=== PATIENT | female | born 1990 | race Two or more races ===

== ENCOUNTER 2019-09-02 06:30 | Emergency (ER) | payer SELFPAY ==
[~2019-09-02] VITALS: Ht 149.9 cm; Wt 73.4 kg
[2019-09-02] MEDS ORDERED: MORPHINE SULFATE 4 MG/ML, 1ML IVPush PRN (07:00)
[2019-09-02] MEDS ORDERED: ONDANSETRON 2MG/ML, 2ML IVPush ONE (07:00)
[2019-09-02] MEDS ORDERED: SODIUM CHLORIDE FLUSH 10ML SYR IVF ONE (07:00)
--- NOTE | 2019-09-02 07:00 | NUR ---
REPORT TO HANNAH LEONARD
[2019-09-02] MEDS ORDERED: ONDANSETRON 2MG/ML, 2ML ONE (07:09)
[2019-09-02] MEDS ORDERED: MORPHINE SULFATE 4 MG/ML, 1ML ONE (07:09)
[2019-09-02 07:10] LABS: BASOPHILS # (AUTO) 0.01 x10^3/uL (0-0.1); BASOPHILS % (AUTO) 0 % (0-1); EOSINOPHILS # (AUTO) 0.09 x10^3/uL (0-0.4); EOSINOPHILS % (AUTO) 1 % (1-7); LYMPHOCYTES # (AUTO) 2.18 x10^3/uL (1-3.4); LYMPHOCYTES % (AUTO) 23 % (22-44); MD NO; MEAN CORPUSCULAR HEMOGLOBIN 30.4 pg (27.0-34.8); MEAN PLATELET VOLUME 9.1 fL (7.4-10.4); MONOCYTES # (AUTO) 0.64 x10^3/uL (0.2-0.8); MONOCYTES % (AUTO) 7 % (2-9); NEUTROPHILS # (AUTO) 6.59 x10^3/uL (1.8-6.8); NEUTROPHILS % (AUTO) 69 % (42-75); PLATELET COUNT 185 x10^3/uL (130-400); RED BLOOD COUNT 4.46 x10^6/uL (3.82-5.3); RED CELL DISTRIBUTION WIDTH 13.3 % (9.6-15.2)
[2019-09-02 07:16] LABS: ALANINE AMINOTRANSFERASE 100 U/L (12-78); ALBUMIN 3.5 g/dL (3.4-5.0); ANION GAP 5 mmol/L (5-15); CALCIUM 8.4 mg/dL (8.5-10.1); CHLORIDE 112 mmol/L (98-107); CREATININE 0.75 mg/dL (0.55-1.02)
--- NOTE | 2019-09-02 07:18 | NUR ---
[facility] AT BEDSIDE FOR EVALUATION
[2019-09-02 07:20] LABS: ALKALINE PHOSPHATASE 111 U/L (45-117); BILIRUBIN,TOTAL 0.8 mg/dL (0.2-1.0); TOTAL PROTEIN 7.4 g/dL (6.4-8.2)
[2019-09-02 07:37] LABS: MICROSCOPIC NOT IND
[2019-09-02 07:38] LABS: CULTURE INDICATED? NO
--- NOTE | 2019-09-02 07:45 | NUR ---
ULTRASOUND AT BEDSIDE, PATIENT MEDICATED ORDERED
--- NOTE | 2019-09-02 08:07 | NUR ---
[facility] AT BEDSIDE TO DISCUSS POC
[2019-09-02 08:13] VITALS: BP 116/79
--- NOTE | 2019-09-02 08:29 | NUR ---
DISCHARGE INSTRUCTIONS REVIEWED
== END 2019-09-02 08:31 | disposition home or self-care (01) ==
LOC: ED 07:09
DX: K80.20 Calculus of gallbladder without cholecystitis without obstruction (principal)
CPT/HCPCS: 36415; 76700; 80053; 81003; 83690; 84703; 85025; 96374; 96375; 99284; J2270; J2405

== ENCOUNTER 2020-03-27 01:55 | Inpatient (IN) | payer BC ==
[~2020-03-27] VITALS: Ht 149.9 cm; Wt 74.7 kg
[2020-03-27 02:29] LABS: BASOPHILS # (AUTO) 0.03 x10^3/uL (0-0.1); BASOPHILS % (AUTO) 0 % (0-1); EOSINOPHILS # (AUTO) 0.11 x10^3/uL (0-0.4); EOSINOPHILS % (AUTO) 1 % (1-7); LYMPHOCYTES % (AUTO) 21 % (22-44); MD NO; MEAN CORPUSCULAR HEMOGLOBIN 30.9 pg (27.0-34.8); MEAN CORPUSCULAR HGB CONC 34.2 g/dL (32.4-35.8); MEAN CORPUSCULAR VOLUME 90.4 fL (80-100); MEAN PLATELET VOLUME 9.3 fL (7.4-10.4); MONOCYTES % (AUTO) 7 % (2-9); NEUTROPHILS % (AUTO) 71 % (42-75); PLATELET COUNT 188 x10^3/uL (130-400); RED BLOOD COUNT 4.46 x10^6/uL (3.82-5.3); RED CELL DISTRIBUTION WIDTH 13.3 % (9.6-15.2)
[2020-03-27] MEDS ORDERED: SODIUM CHLORIDE FLUSH 10ML SYR IVF ONE (02:30)
[2020-03-27] MEDS ORDERED: ONDANSETRON 2MG/ML, 2ML IVPush ONE (02:30)
[2020-03-27] MEDS ORDERED: ONDANSETRON 2MG/ML, 2ML ONE ×3 (02:32→16:38)
[2020-03-27] MEDS ORDERED: MORPHINE SULFATE 4 MG/ML, 1ML ONE ×2 (02:32→03:29)
[2020-03-27] MEDS: MORPHINE SULFATE 4 MG/ML, 1ML IVPush PRN ×2 (02:34→03:31)
[2020-03-27 02:38] LABS: ALANINE AMINOTRANSFERASE 71 U/L (12-78); ALBUMIN 3.7 g/dL (3.4-5.0); ANION GAP 7 mmol/L (5-15); CALCIUM 8.6 mg/dL (8.5-10.1); CHLORIDE 106 mmol/L (98-107); CREATININE 0.75 mg/dL (0.55-1.02)
[2020-03-27 02:40] LABS: ALKALINE PHOSPHATASE 119 U/L (45-117); BILIRUBIN,TOTAL 0.7 mg/dL (0.2-1.0); TOTAL PROTEIN 7.8 g/dL (6.4-8.2)
--- NOTE | 2020-03-27 02:43 | NUR ---
PT TO ED WITH C/O ABDOMINAL PAIN. REPROTS HX OF [place] ISSUES. REPORTS NAUSEA DENIES VOMITING OR FEVER. PIV ESTABLISHED IN LAC. LABS DRAWN. PT GIVEN ZOFRAN AND MORPHINE. US AT BEDSIDE.
[2020-03-27] MEDS ORDERED: HYDROcodone/APAP 5/325 TABLET PO ONE (03:30)
[2020-03-27] MEDS ORDERED: HYDROmorphone 2 MG/ML, 1ML IVPush PRN (04:00)
[2020-03-27] MEDS ORDERED: HYDROmorphone 1 MG/ML, 1ML INJ ONE (04:20)
[2020-03-27] MEDS ORDERED: PIPERACILLIN/TAZO/PMX 3.375GM 50 ML ONE (04:26)
[2020-03-27] MEDS ORDERED: PIPERACILLIN/TAZO/PMX 3.375GM 50 ML IV ONE (04:30)
[2020-03-27] MEDS ORDERED: ACETAMINOPHEN 325 MG TABLET PO PRN ×2 (04:30→16:00)
[2020-03-27] MEDS ORDERED: ONDANSETRON 2MG/ML, 2ML IVPush PRN ×3 (04:30→22:00)
[2020-03-27 05:50] VITALS: BP 103/67
[2020-03-27 06:50] VITALS: BP 99/65
[2020-03-27] MEDS: HEPARIN 5,000 UNITS/ML, 1ML SQ SCH ×2 (09:00→17:00)
[2020-03-27] MEDS: PIPERACILLIN/TAZO/PMX 3.375GM 50 ML IV SCH ×2 (12:56→18:23)
[2020-03-27] MEDS ORDERED: MIDAZOLAM 1 MG/ML, 2ML ONE (15:03)
[2020-03-27] MEDS ORDERED: FENTANYL PF 250 MCG/5ML ONE (15:03)
[2020-03-27] MEDS ORDERED: BUPIVACAINE/PF-EPI 0.5% 1:200K ONE (15:21)
[2020-03-27] MEDS ORDERED: CHLORHEXIDINE 15 ML UDC MM ONE (15:22)
[2020-03-27] MEDS ORDERED: SUCCINYLCHOLINE 20 MG/ML, 10ML ONE (15:43)
[2020-03-27] MEDS ORDERED: DEXAMETHASONE 4 MG/ML, 1ML ONE ×2 (15:51→16:13)
[2020-03-27] MEDS ORDERED: hydrALAzine 20 MG/ML, 1ML IV PRN (16:00)
[2020-03-27] MEDS ORDERED: PROMETHAZINE 25 MG/ML, 1ML IVPush PRN (16:00)
[2020-03-27] MEDS ORDERED: LABETALOL 5MG/ML, 20ML IV PRN (16:00)
[2020-03-27] MEDS ORDERED: HYDROmorphone 1 MG/ML, 1ML INJ IVPush PRN (16:00)
[2020-03-27] MEDS ORDERED: MEPERIDINE/PF 25MG/0.5ML IVPush PRN (16:00)
[2020-03-27] MEDS ORDERED: OXYcodone 5 MG/5 ML ORAL.SOL UDC PO PRN ×2 (16:00→22:00)
[2020-03-27] MEDS ORDERED: ROCURONIUM 10MG/ML,5ML ONE (16:13)
[2020-03-27] MEDS ORDERED: PROPOFOL 10 MG/ML, 20ML ONE (16:13)
[2020-03-27] MEDS ORDERED: KETOROLAC 30 MG/1 ML ONE (16:14)
[2020-03-27] MEDS ORDERED: FENTANYL PF 100 MCG/2ML ONE (16:43)
[2020-03-27] MEDS: FENTANYL PF 100 MCG/2ML IV PRN ×2 (16:45→17:05)
[2020-03-27] MEDS ORDERED: OXYcodone 5 MG/5 ML ORAL.SOL UDC ONE (17:09)
[2020-03-27] MEDS ORDERED: HYDROmorphone 2 MG/ML, 1ML IV PRN (18:30)
[2020-03-27] MEDS ORDERED: HYDROcodone/APAP 5/325 TABLET PO PRN (18:30)
[2020-03-27] MEDS ORDERED: MORPHINE SULFATE 4 MG/ML, 1ML IVPush PRN (18:30)
[2020-03-27] MEDS: LACTATED RINGERS 1,000 ML IV SCH (19:03)
[2020-03-27 19:04] VITALS: BP 108/71
[2020-03-27] MEDS: morphine SULFATE 10 MG/ML, 1ML IVPush PRN ×2 (19:38→23:05)
[2020-03-28] MEDS: PIPERACILLIN/TAZO/PMX 3.375GM 50 ML IV SCH ×3 (00:13→12:30)
[2020-03-28 00:53] VITALS: BP 115/72
[2020-03-28] MEDS: LACTATED RINGERS 1,000 ML IV SCH (04:04)
[2020-03-28] MEDS: morphine SULFATE 10 MG/ML, 1ML IVPush PRN ×2 (05:50→09:46)
[2020-03-28 06:27] LABS: BASOPHILS # (AUTO) 0.04 x10^3/uL (0-0.1); BASOPHILS % (AUTO) 0 % (0-1); EOSINOPHILS % (AUTO) 0 % (1-7); LYMPHOCYTES # (AUTO) 1.17 x10^3/uL (1-3.4); LYMPHOCYTES % (AUTO) 9 % (22-44); MD NO; MEAN CORPUSCULAR HEMOGLOBIN 30.5 pg (27.0-34.8); MEAN CORPUSCULAR HGB CONC 33.6 g/dL (32.4-35.8); MEAN CORPUSCULAR VOLUME 90.5 fL (80-100); MEAN PLATELET VOLUME 9.3 fL (7.4-10.4); MONOCYTES # (AUTO) 0.42 x10^3/uL (0.2-0.8); MONOCYTES % (AUTO) 3 % (2-9); NEUTROPHILS # (AUTO) 11.92 x10^3/uL (1.8-6.8); NEUTROPHILS % (AUTO) 88 % (42-75); PLATELET COUNT 184 x10^3/uL (130-400); RED BLOOD COUNT 4.42 x10^6/uL (3.82-5.3); RED CELL DISTRIBUTION WIDTH 13.5 % (9.6-15.2)
[2020-03-28 06:36] LABS: CHLORIDE 107 mmol/L (98-107)
[2020-03-28 06:40] LABS: ANION GAP 8 mmol/L (5-15); CREATININE 0.69 mg/dL (0.55-1.02)
[2020-03-28 07:36] VITALS: BP 109/67
[2020-03-28] MEDS: HEPARIN 5,000 UNITS/ML, 1ML SQ SCH ×2 (09:00)
[2020-03-28] MEDS ORDERED: AMOX1TAB64 PO (11:17)
[2020-03-28] MEDS ORDERED: HYDR-3240 PO (12:18)
[2020-03-28] MEDS ORDERED: DOCU-131 PO (12:20)
== END 2020-03-28 13:37 | disposition home or self-care (01) | DRG 419 ==
LOC: ED 03:01 → EDIP 05:59 → 3N 06:39
PROVIDERS: ADMIT Internal Medicine; ATTEND Internal Medicine
PROC: 0FT44ZZ Resection of Gallbladder, Percutaneous Endoscopic Approach (ICD-10-PCS; principal; 2020-03-27 17:30)
DX: K80.01 Calculus of gallbladder with acute cholecystitis with obstruction (principal); E66.9 Obesity, unspecified; D72.829 Elevated white blood cell count, unspecified; Z98.891 History of uterine scar from previous surgery; Z68.33 Body mass index [BMI] 33.0-33.9, adult
CPT/HCPCS: 36415; 76700; 78226; 80048; 80053; 83690; 84703; 85025; 87040; 88304; 96374; 96375; 96376; 99285; G0378; J1100; J1170; J1885; J2250; J2405; J2543; J2704; J3010; A9537; J0330; J2270